=== PATIENT | male | born 1960 | race Caucasian/White ===

== ENCOUNTER 2016-07-06 06:37 | Inpatient (IN) | payer BC, OTHER ==
[2016-06-25 14:28] VITALS: BMI 26.0
[2016-07-06] VITALS (8 sets, daily range): BP systolic 114–148; BP diastolic 76–97; PULSE 63–89; TEMP 36.3–36.8; O2SAT 94–99; Ht 182.9 cm; Wt 88.6 kg
[~2016-07-06] VITALS: Ht 182.9 cm; Wt 88.6 kg
[~2016-07-06 06:37] MED LIST: CEFAZOLIN 2000 MG/60 ML D5W 60 ML IV SCH; HEPARIN SOD 5000 UNIT/0.5 ML CARP SQ SCH; LACTATED RINGER'S 1000ML 1,000 ML IV SCH
[2016-07-06] MEDS ORDERED: NEOSTIGMINE METHYLSULFATE 5 MG/5 ML SYR ONE (06:53)
[2016-07-06] MEDS ORDERED: GLYCOPYRROLATE INJ 0.2 MG/ML VIAL ONE (06:53)
[2016-07-06] MEDS ORDERED: ONDANSETRON INJ 2 MG/ML 2 ML VIAL ONE ×2 (06:53→09:17)
[2016-07-06] MEDS ORDERED: EpHEDrine SULFATE 50MG/5ML SYR ONE (06:53)
[2016-07-06] MEDS ORDERED: PHENYLEPHRINE 100MCG/ML 5ML SYR ONE (06:53)
[2016-07-06] MEDS ORDERED: DEXAMETHASONE SOD INJ 4 MG/ML VIAL ONE (06:53)
[2016-07-06] MEDS ORDERED: PROPOFOL IV EMULSION 10 MG/ML 20 ML VIAL IV ONE (06:53)
[2016-07-06] MEDS ORDERED: LIDOCAINE HCL 2% 2 ML VIAL (20MG/ML) ONE (06:53)
[2016-07-06] MEDS ORDERED: MIDAZOLAM HCL 1 MG/ML 2ML VIAL ONE (06:53)
[2016-07-06] MEDS ORDERED: ROCURONIUM BROMIDE 10 MG/ML 5 ML VIAL ONE (06:53)
[2016-07-06] MEDS ORDERED: FENTANYL CITRATE INJ 50 MCG/1 ML 2 ML VIAL ONE (06:54)
[2016-07-06] MEDS ORDERED: BUPIVACAINE 0.5 % 5 MG/1 ML MPF 30ML VIAL ONE (06:58)
--- NOTE | 2016-07-06 08:21 | History & Physical Bridge Note ---
H&P Re-Evaluation Bridge Note: I have examined the patient, reviewed the History & Physical and in the interval since the performance of the History & Physical I have noted the following changes of clinical significance: No changes noted
[2016-07-06] MEDS ORDERED: BELLADONNA/OPIUM SUPP 60 MG SUPP PR ONE ×2 (08:42→09:51)
[2016-07-06] MEDS ORDERED: ONDANSETRON INJ 2 MG/ML 2 ML VIAL IV PRN ×2 (09:15→11:00)
[2016-07-06] MEDS ORDERED: ATROPINE SULFATE 0.1 MG/ML 5ML SYR IV PRN (09:15)
[2016-07-06] MEDS ORDERED: HYDROmorphone INJ 1 MG/ML SYR IV PRN ×2 (09:15→11:00)
[2016-07-06] MEDS ORDERED: PROMETHAZINE HCL INJ 6.25 MG in SODIUM CHLORIDE 0.9% 50ML 50 ML IV PRN (09:15)
[2016-07-06] MEDS ORDERED: EpHEDrine SULFATE INJ 50 MG/ML AMP IV PRN (09:15)
[2016-07-06] MEDS ORDERED: LARYING-O-JET KIT (LTA) EXT ONE ×2 (09:24)
[2016-07-06] MEDS ORDERED: FLOSEAL HEMOSTATIC MATRIX 10ML TOP ONE (10:03)
[2016-07-06] MEDS ORDERED: OXYBUTYNIN CHLORIDE 5 MG TAB PO PRN (11:00)
--- NOTE | 2016-07-06 11:11 | [facility] Post Operative Brief Note ---
Immediate Operative Summary Operative Date Jul 06, 2016. Pre-Operative Diagnosis Prostate cancer Post-Operative Diagnosis same Procedure(s) Performed Robotic assisted laparoscopic prostatectomy Surgeon Dr Yanes Direct Care Professional Surgeon(s) Dora MCKEON Estimated Blood Loss 100ml Findings As per dictation Specimens A. periprosthetic fat B. prostate and seminal vesicles Drains YONY; graham Anesthesia Gen Complication(s) None Disposition Recovery Room / PACU (stable)
[2016-07-06] MEDS: FENTANYL CITRATE INJ 50 MCG/1 ML 2 ML VIAL IV PRN ×3 (11:20→11:30)
[2016-07-06 11:37] LABS: HEMATOCRIT 39.7 % (42-52); MEAN CELL VOLUME 92.1 fL (80-100); MEAN CORPUSCULAR HEMOGLOBIN 31.1 pg (25-34); MEAN PLATELET VOLUME 10.3 fL (7.4-10.4); PLATELET COUNT 226 K/uL (130-400); RED BLOOD COUNT 4.31 M/uL (4.7-6.1); WHITE BLOOD COUNT 7.18 K/uL (4.8-10.8)
--- NOTE | 2016-07-06 11:59 | Anesthesiology Progress Note ---
Anesthesia Post Op Note Date & Time Jul 06, 2016 at 11:59 Vital Signs Pain Intensity: 0 Vital Signs Past 12 Hours Date Time Temp Pulse Resp B/P Pulse Ox O2 Delivery O2 Flow Rate FiO2 07/06/16 11:55 63 16 149/91 97 Nasal Cannula 3 07/06/16 11:45 36.3 66 16 150/93 98 Nasal Cannula 3 07/06/16 11:35 67 16 142/95 98 Mask 4 07/06/16 11:25 62 16 139/98 100 Mask 5 07/06/16 11:15 70 16 151/94 100 Mask 10 07/06/16 11:12 36.0 82 16 135/105 100 Mask 10 07/06/16 07:29 36.5 72 18 148/97 97 Room Air Notes Mental Status: alert / awake / arousable, participated in evaluation Pt Amnestic to Procedure: Yes Nausea / Vomiting: adequately controlled Pain: adequately controlled Airway Patency, RR, SpO2: stable & adequate BP & HR: stable & adequate Hydration State: stable & adequate Anesthetic Complications: no major complications apparent
[2016-07-06 12:05] LABS: BUN/CREATININE RATIO 13.4 (10-20); CALCIUM 8.6 mg/dl (8.5-10.1); CREATININE 1.2 mg/dl (0.60-1.40)
[2016-07-06 12:08] LABS: MEAN CORPUSCULAR HGB CONC 33.8 g/dl (32-36)
[2016-07-06] MEDS: LACTATED RINGER'S 1000ML 1,000 ML IV SCH ×3 (12:48→23:48)
[2016-07-06] MEDS: ACETAMINOPHEN 500 MG TAB PO SCH ×2 (12:48→19:05)
[2016-07-06] MEDS: ACETAMINOPHEN/CODEINE 300/30MG TAB PO PRN ×3 (12:49→22:34)
[2016-07-06] MEDS: CEFAZOLIN IV 2,000 MG in DEXTROSE 5% 50ML 50 ML IV SCH ×2 (15:36→23:47)
[2016-07-06] MEDS: KETOROLAC TROMETHAMINE 30 MG/ML VIAL IV. PRN (15:36)
--- NOTE | 2016-07-06 17:36 | OPERATIVE REPORT ---
DATE OF OPERATION: 07/06/2016 PREOPERATIVE DIAGNOSIS: Prostate cancer. POSTOPERATIVE DIAGNOSIS: Prostate cancer. PROCEDURE PERFORMED: Robotic assisted laparoscopic radical prostatectomy. ANESTHESIA: General. ESTIMATED BLOOD LOSS: 100 mL. URINE OUTPUT: Not recorded. SPECIMEN: 1. Periprostatic fat. 2. Prostate and seminal vesicles. DRAINS: 1. YONY drain. 2. Hyoos catheter. PRIMARY SURGEON: Dr. Power Yanes. SENIOR ENGINEERING MANAGER: Ms. Dora Juarez. DESCRIPTION OF THE PROCEDURE: Hunter Lazar was identified in the preoperative holding area. Appropriate informed consents were reviewed and completed and the patient was transported to the operating suite. Upon arrival, he received appropriate preoperative antibiotics in the form of Ancef. He additionally received a dose of subcutaneous heparin. Following administration of general anesthesia, he was placed in dorsolithotomy position and sterilely prepped and draped in standard fashion. I then passed a Veress needle per umbilicus and insufflated the abdomen to 15 mmHg. I placed an infraumbilical 10 mm 0 degree lens via a 12 mm Visiport and inspected the abdomen. There was no Veress trauma nor significant adhesive disease. I placed other robotic ports in standard fashion under direct vision. After docking the robot, I mobilized the left lateral aspect of the sigmoid colon, freeing the pouch of Tomas. I then controlled the umbilical ligaments just inferior to the umbilicus and dissected through the peritoneum lateral to each of these ligaments down to the medial aspect of the internal ring on both the right and left. I carried this dissection first to vas deferens without transecting the vas at this location. I carried my dissection under the pubic arch exposing the anterior surface of the bladder and the prostate. I then defatted the prostate exposing the endopelvic fascia bilaterally. This was passed off the table as specimen. I then opened the endopelvic fascia, first on the right followed by the left. I began at the base and dissected towards the apex with care to preserve all lateral levator musculature as well as the periurethral musculature. This dissection was very clean with excellent preservation. I then placed a dorsal venous complex stitch and this was a 0 Vicryl in [id number] fashion with excellent hemostasis. At that time, I was able to visually observe what I felt to be the bladder neck, but with gentle traction on the Hoyos catheter and lateral to medial traction with my instruments, I was able to confirm that was in fact the bladder neck. I made an anterior cystotomy with a combination of bipolar and monopolar electrocautery and the deflated the Hoyos catheter and passed it through this cystotomy. I dissected laterally around the bladder neck in an attempt to preserve all bladder neck musculature before transecting the bladder neck entirely. I carried my dissection posteriorly down until I was able to identify the ampulla of the vasa bilaterally. I dissected each of these for approximately 4 cm before transecting them. I then dissected the bilateral seminal vesicles by utilizing the vasa to help with anterior retraction. I completed this portion of the dissection by carrying my posterior dissection behind the prostate distally as far as the apex and laterally as to the edge of the neurovascular bundles. I did began to develop these neurovascular bundles at that time in hopes for bilateral nerve sparing. I then returned to the vascular pedicle and before taking the pedicle, I incised the lateral prostatic fascia as a target for my nerve sparing. I controlled the vascular pedicle with a series of Weck clips followed by gently pushing the neurovascular bundles off the right and left posterior lateral aspects of the prostate with excellent preservation. These were preserved down beyond the apex of the prostate and to the level of the urethra. I then completed my apical dissection of the prostate with a combination of bipolar and monopolar electrocautery with care to preserve maximal urethral length, which was excellent. I dissected the urethra cold over a Hoyos catheter and then the specimen was freed and placed into an EndoCatch bag and passed to the upper abdomen. I performed a running anastomosis utilizing a double armed V-Loc stitch beginning at the posterior bladder neck and carrying this through to the anterior surface. A new Hoyos catheter was inserted and anastomosis tested without any evidence of a leak. I then placed FloSeal around the anastomosis and guided a YONY drain into the left lateral most robotic port. The specimen was extracted through expansion of the infraumbilical incision. The fascia was closed with 3 [id number] 0 PDS stitches followed by closure of all skin incisions using 4-0 Monocryl. All incisions were infiltrated with 0.5% Marcaine before being closed with Dermabond. YONY drain was sutured in place. The patient was subsequently extubated and taken to the PACU in stable condition. There were no complications. I attest to the content of the Intraoperative Record and any orders documented therein. Any exceptio ns are noted below.
[2016-07-06] MEDS: HEPARIN SOD 5000 UNIT/0.5 ML CARP SQ SCH (18:26)
[2016-07-06] MEDS: DOCUSATE SODIUM 100 MG CAP PO SCH (20:45)
[2016-07-07] MEDS: ACETAMINOPHEN 500 MG TAB PO SCH ×3 (01:58→13:40)
[2016-07-07 03:04] VITALS: BP 116/78; PULSE 81; TEMP 36.6; O2SAT 95
[2016-07-07] MEDS: KETOROLAC TROMETHAMINE 30 MG/ML VIAL IV. PRN (05:49)
[2016-07-07 06:33] LABS: HEMATOCRIT 35.2 % (42-52); MEAN CELL VOLUME 90.7 fL (80-100); MEAN CORPUSCULAR HEMOGLOBIN 30.7 pg (25-34); MEAN CORPUSCULAR HGB CONC 33.8 g/dl (32-36); RED BLOOD COUNT 3.88 M/uL (4.7-6.1); WHITE BLOOD COUNT 6.34 K/uL (4.8-10.8)
[2016-07-07 06:34] LABS: COMPLETE YES; EOS % 0.2 %; IG% 0.2 %; LYMPH % 20.8 %; LYMPH ABS # 1.32 K/uL (1.2-3.4); MEAN PLATELET VOLUME 10.1 fL (7.4-10.4); MONO % 9.1 %; NEUT % 69.7 %; PLATELET COUNT 207 K/uL (130-400)
[2016-07-07] MEDS: HEPARIN SOD 5000 UNIT/0.5 ML CARP SQ SCH (06:34)
[2016-07-07] MEDS: LACTATED RINGER'S 1000ML 1,000 ML IV SCH (06:35)
[2016-07-07 07:06] LABS: BUN/CREATININE RATIO 10.5 (10-20); CALCIUM 8.5 mg/dl (8.5-10.1); POTASSIUM 3.8 mmol/L (3.5-5.1)
--- NOTE | 2016-07-07 07:16 | Progress Note ---
Subjective Date of Service: Jul 07, 2016. Subjective Pt evaluation today including: conversation w/ patient, chart review, lab review Voiding: graham catheter in place (patent, draining yellow urine) 56 yo male s/p RALRP. Pt reports he feels well this morning. Says he's ready to go home. Had some discomfort over night, but resolved now after receiving pain medication. Denies n/v. Reports he is hungry. Denies flatus this morning. Labs stable. I&Os stable. Review of Systems Constitutional: No chills, No fever Respiratory: No shortness of breath Cardiac: No chest pain Abdomen: No nausea, No pain, No vomiting Male : No hematuria Heme: No abnormal bleeding/bruising Objective Vital Signs Date Time Temp Pulse Resp B/P Pulse Ox O2 Delivery O2 Flow Rate FiO2 07/07/16 03:04 36.6 81 17 116/78 95 Room Air 07/06/16 23:50 Room Air 07/06/16 22:48 36.8 76 17 125/81 96 Room Air 07/06/16 19:48 36.8 89 16 114/76 94 Room Air 07/06/16 15:19 36.8 87 18 131/79 98 Nasal Cannula 3.0 07/06/16 14:05 78 19 130/86 99 Nasal Cannula 2.0 07/06/16 13:05 36.5 78 20 143/89 98 Nasal Cannula 2.0 07/06/16 12:34 74 16 135/87 99 Nasal Cannula 2.0 07/06/16 12:05 Nasal Cannula 3.0 07/06/16 12:05 36.3 63 16 139/93 98 Nasal Cannula 3.0 07/06/16 12:05 98 Nasal Cannula 3.0 07/06/16 11:55 63 16 149/91 97 Nasal Cannula 3 07/06/16 11:45 36.3 66 16 150/93 98 Nasal Cannula 3 07/06/16 11:35 67 16 142/95 98 Mask 4 07/06/16 11:25 62 16 139/98 100 Mask 5 07/06/16 11:15 70 16 151/94 100 Mask 10 07/06/16 11:12 36.0 82 16 135/105 100 Mask 10 07/06/16 07:29 36.5 72 18 148/97 97 Room Air Physical Exam General Appearance: no apparent distress Eyes: normal inspection ENT: hearing grossly normal Neck: no JVD Respiratory/Chest: no respiratory distress, no accessory muscle use Cardiovascular: no JVD Abdomen: soft, + pertinent finding (abdominal incisions c/d/i; YONY draining serosanguinous fluid) Extremities: normal inspection Neurologic/Psychiatric: alert, normal mood/affect, oriented x 3 Skin: normal color Laboratory Results Last 24 Hours Test 07/06/16 11:25 07/07/16 06:25 White Blood Count 7.18 K/uL 6.34 K/uL Red Blood Count 4.31 M/uL 3.88 M/uL Hemoglobin 13.4 g/dL 11.9 g/dL Hematocrit 39.7 % 35.2 % Mean Corpuscular Volume 92.1 fL 90.7 fL Mean Corpuscular Hemoglobin 31.1 pg 30.7 pg Mean Corpuscular Hemoglobin Concent 33.8 g/dl 33.8 g/dl RDW Standard Deviation 44.6 fL 43.1 fL RDW Coefficient of Variation 13.2 % 13.0 % Platelet Count 226 K/uL 207 K/uL Mean Platelet Volume 10.3 fL 10.1 fL Sodium Level 140 mmol/L 136 mmol/L Potassium Level 4.0 mmol/L 3.8 mmol/L Chloride Level 104 mmol/L 100 mmol/L Carbon Dioxide Level 29 mmol/L 27 mmol/L Anion Gap 7.0 mmol/L 9.0 mmol/L Blood Urea Nitrogen 16 mg/dl 11 mg/dl Creatinine 1.20 mg/dl 1.00 mg/dl Est Creatinine Clear Calc Drug Dose 76.4 ml/min 91.6 ml/min Estimated GFR () 78.4 97.8 Estimated GFR (Non- 67.7 84.4 BUN/Creatinine Ratio 13.4 10.5 Random Glucose 134 mg/dl 100 mg/dl Calcium Level 8.6 mg/dl 8.5 mg/dl Neutrophils (%) (Auto) 69.7 % Lymphocytes (%) (Auto) 20.8 % Monocytes (%) (Auto) 9.1 % Eosinophils (%) (Auto) 0.2 % Basophils (%) (Auto) 0.0 % Neutrophils # (Auto) 4.42 K/uL Lymphocytes # (Auto) 1.32 K/uL Monocytes # (Auto) 0.58 K/uL Eosinophils # (Auto) 0.01 K/uL Basophils # (Auto) 0.00 K/uL Immature Granulocyte % (Auto) 0.2 % Immature Granulocyte # (Auto) 0.01 K/uL Assessment and Plan POD #1 s/p RALRP. AFVSS. Pt doing well post-op. Will advance to a mechanical soft diet for breakfast. Encourage ambulation to hallway. Encourage use of IS. Hep lock IVF after breakfast if tolerating well. Possible d/c home after lunch today if tolerating PO, ambulating without difficulty, and pain controlled. Discharge planning: home
[2016-07-07] MEDS ORDERED: CLC100 PO (07:18)
[2016-07-07] MEDS ORDERED: ACET-749 PO (07:18)
[2016-07-07] MEDS ORDERED: DTR5 PO (07:18)
[2016-07-07] MEDS ORDERED: CIPR-255 PO (07:18)
[2016-07-07] MEDS: CEFAZOLIN IV 2,000 MG in DEXTROSE 5% 50ML 50 ML IV SCH (07:25)
--- NOTE | 2016-07-07 07:25 | Discharge Instructions ---
Discharge Instructions Date of Service Jul 07, 2016. Admission Reason for Admission: Prostate Cancer Discharge Discharge Diagnosis / Problem: Prostate Cancer Discharge Goals Goal(s): Decrease discomfort, Improve function, Improve disease control, Improve nutritional status, Therapeutic intervention Activity Recommendations Activity Limitations: as noted below Shower/Bathe: tomorrow . Instructions / Follow-Up Instructions / Follow-Up 1. Do not lift >20lbs x 6 weeks. 2. No heavy exercise x 6 weeks. You may engage in light activity such as walking and stairs as tolerated. 3. No sexual intercourse until cleared by Dr. Hayes or Dr. Yanes. 4. Do not drive x [address] while taking narcotics. 5. You have been prescribed the antibiotic Ciprofloxacin. Start 2 days prior to graham catheter removal. Finish all of the antibiotic you have been prescribed. 6. Immediately call our office at [phone] if your catheter is removed for any reason. 7. Follow-up as scheduled. Please call our office at [phone] if you need to reschedule for any reason. . Current Hospital Diet Hospital Diet(s): Regular Diet Discharge Diet Recommended Diet: Regular Diet Procedures Procedures Performed: Robotic assisted laparoscopic prostatectomy Pending Studies Studies pending at discharge: yes (prostate pathology) List of pending studies: prostate pathology Medical Emergencies . Who to Call and When: Medical Emergencies: If at any time you feel your situation is an emergency, please call 911 immediately. . Non-Emergent Contact Non-Emergency issues call your: Urologist Call Non-Emergent contact if: temperature is above 101.5, your pain is not controlled, your pain is worsening, your pain is unusual for you, your pain is concerning you . . "Provider Documentation" section prepared by Dora Juarez. VTE Core Measure Inpt VTE Proph given/why not?: Unfractionated heparin SQ, SCD's [place] Drug Monitoring Program Search Results: patient reviewed within database, no issues identified
[2016-07-07] MEDS: DOCUSATE SODIUM 100 MG CAP PO SCH (07:26)
[2016-07-07 08:17] VITALS: BP_SYST 122; BP_DIAS 76; BP_DIAS 82; PULSE 72; TEMP 36.4; TEMP 36.7; O2SAT 96; O2SAT 98
--- NOTE | 2016-07-07 08:27 | Anesthesiology Progress Note ---
Anesthesia Post Op Note Date & Time Jul 07, 2016 at 08:27 Vital Signs Pain Intensity: 5.0 Vital Signs Past 12 Hours Date Time Temp Pulse Resp B/P Pulse Ox O2 Delivery O2 Flow Rate FiO2 07/07/16 08:17 36.4 72 17 122/76 96 Room Air 07/07/16 07:20 Room Air 07/07/16 03:04 36.6 81 17 116/78 95 Room Air 07/06/16 23:50 Room Air 07/06/16 22:48 36.8 76 17 125/81 96 Room Air Notes Mental Status: alert / awake / arousable, participated in evaluation Pt Amnestic to Procedure: Yes Nausea / Vomiting: adequately controlled Pain: adequately controlled Airway Patency, RR, SpO2: stable & adequate BP & HR: stable & adequate Hydration State: stable & adequate Anesthetic Complications: no major complications apparent
[2016-07-07] MEDS ORDERED: NURSING VERBAL MED ORDER ONE (09:00)
[2016-07-07 10:47] VITALS: O2SAT 98
[2016-07-07 11:58] VITALS: BP 128/86; PULSE 70; TEMP 36.5; O2SAT 99
[2016-07-07 14:25] VITALS: BP 128/86; PULSE 70; TEMP 36.5; O2SAT 99
--- NOTE | 2016-07-15 08:09 | Discharge Summary ---
Discharge Summary Date of Service Jul 15, 2016. Discharge Summary Admission Date: Jul 06, 2016 at 11:03 Discharge Date: Jul 07, 2016 Discharge Disposition: Home Principal Diagnosis: prostate cancer Procedures: robotic prostatectomy Medication Reconciliation New Medications: Ciprofloxacin Hcl (Cipro) 500 Mg Tab 500 MG PO BID, #10 TAB 0 Refills Start 2 days prior to graham catheter removal. Acetaminophen/Codeine (Tylenol W/Codeine #3) 300 Mg/30 Mg Tab 1-2 TAB PO Q4H PRN for Pain, #20 TAB 0 Refills Docusate Sodium (Docusate Sodium) 100 Mg Cap 100 MG PO BID PRN for Constipation, #60 CAP 0 Refills Oxybutynin Chloride (Oxybutynin Chloride) 5 Mg Tab 5 MG PO Q8 PRN for BLADDER SPASMS, #30 TAB 0 Refills Hospital Course Admitted for robotic prostatectomy -details of the procedure as dictated previously in the operative report, however, in summary, he tolerated the procedure very well. He progressed appropriately overnight and was in stable condition on the morning of post operative day #1. His drain was removed and he was subsequently discharged home in stable condition. Total time spent on discharge = This includes examination of the patient, discharge planning, medication reconciliation, and communication with other providers. Discharge Instructions please see previously written d/c instructions
== END 2016-07-07 16:00 | disposition home or self-care (01) | DRG 708 ==
LOC: ENRESERVDT → ENRESERVTM → C.ACU 06:37 → C.MSN 11:03
PROVIDERS: ADMIT Urology; ATTEND Urology
PROC: 0VT34ZZ Resection of Bilateral Seminal Vesicles, Percutaneous Endoscopic Approach (ICD-10-PCS; principal; 2016-07-06 08:30)
PROC: 0VT04ZZ Resection of Prostate, Percutaneous Endoscopic Approach (ICD-10-PCS; principal; 2016-07-06 08:30)
PROC: 8E0W4CZ Robotic Assisted Procedure of Trunk Region, Percutaneous Endoscopic Approach (ICD-10-PCS; principal; 2016-07-06 08:30)
DX: C61 Malignant neoplasm of prostate (principal); Z72.0 Tobacco use; Z80.42 Family history of malignant neoplasm of prostate